=== PATIENT | female | born 1945 | race Caucasian/White ===

== ENCOUNTER 2020-07-30 13:21 | Outpatient (CLI) | payer OTHER, SELFPAY ==
--- NOTE | 2020-07-30 13:38 | XR_ITS ---
WS: [id number] Left knee, 3 views, 07/30/2020 Clinical Data: LEFT KNEE PAIN AND SWELLING Comparison: None. Findings: No fractures or dislocations are seen. There is medial joint compartment narrowing. There is a small spur of the medial tibial plateau.. The patella demonstrates a posterior superior spur.. The soft tis sues are unremarkable. XR/XR knee LT 3V* [id number] Impression: Medial joint compartment narrowing and posterior patellar spur of the left knee .
== END 2020-07-30 13:22 | disposition home or self-care (01) ==
PROVIDERS: Visit Provider Internal Medicine
DX: M79.89 Other specified soft tissue disorders (principal); M25.561 Pain in right knee
CPT/HCPCS: 73562

== ENCOUNTER 2021-04-15 09:10 | Outpatient (CLI) | payer MEDICARE, OTHER, SELFPAY ==
[2021-04-15 09:32] VITALS: BP 146/83; PULSE 67; RESP 16; TEMP 36.6; O2SAT 99; BMI 22.8
[2021-04-15 10:19] VITALS: BP 146/81; PULSE 66; RESP 16; TEMP 36.5; O2SAT 99
[2021-04-15 11:19] VITALS: BP 148/89; PULSE 62; RESP 17; TEMP 36.6; O2SAT 99
== END 2021-04-15 09:11 | disposition home or self-care (01) ==
PROVIDERS: Visit Provider Nurse Practitioner Family
DX: U07.1 COVID-19 (principal)
CPT/HCPCS: 96365

== ENCOUNTER 2021-05-10 06:00 | Outpatient (RCR) | payer MEDICARE, OTHER, SELFPAY | END 2021-05-16 23:59 | disposition home or self-care (01) | LOC: SPT 06:00 | PROVIDERS: Referring Provider Student in an Organized Health Care Education/Training Program; Visit Provider Student in an Organized Health Care Education/Training Program | DX: Z47.1 Aftercare following joint replacement surgery (principal); Z96.652 Presence of left artificial knee joint | CPT/HCPCS: 97110; 97161 ==

== ENCOUNTER 2021-05-17 06:00 | Outpatient (RCR) | payer MEDICARE, OTHER, SELFPAY | END 2021-06-13 23:59 | disposition home or self-care (01) | LOC: SPT 06:00 | PROVIDERS: Referring Provider Student in an Organized Health Care Education/Training Program; Visit Provider Student in an Organized Health Care Education/Training Program | DX: Z47.1 Aftercare following joint replacement surgery (principal); Z96.652 Presence of left artificial knee joint | CPT/HCPCS: 97110 ==

== ENCOUNTER 2021-09-09 12:05 | Outpatient (CLI) | payer MEDICARE, OTHER, SELFPAY ==
[2021-09-09 12:24] LABS: Basophils % 0.4 %; Eosinophils % 0.6 %; Hematocrit 38.4 % (37.0-47.0); Hemoglobin 12.1 g/dL (11.5-15.3); Lymphocytes # 1.3 10^3/uL (0.8-4.8); Lymphocytes % 26.1 %; Mean Corpuscular HGB Conc 31.5 g/dL (30.0-36.0); Mean Corpuscular Hemoglobin 29.2 pg (28.0-34.0); Mean Corpuscular Volume 92.8 fl (81-99); Mean Platelet Volume 8.4 fL (7.4-10.4); Monocytes # 0.5 10^3/uL (0.2-0.9); Monocytes % 8.9 %; Neutrophils # 3.23 10^3/uL (1.8-7.7); Nucleated Red Blood Cells % 0 %; Platelet Count 204 10^3/cmm (130-400); Red Blood Count 4.14 10^6/uL (4.1-5.3); Red Cell Distribution Width 13.8 % (12.1-15.1); White Blood Count 5.1 10^3/uL (4.0-10.0)
[2021-09-09 12:44] LABS: Alanine Aminotransferase 14 U/L (0-33); Albumin Level 4.6 g/dL (3.5-5.2); Alkaline Phosphatase 135 IU/L (35-105); Anion Gap 14.7 (5-19); Aspartate Amino Transferase 27 U/L (0-32); Blood Urea Nitrogen 26 mg/dL (8-23); Calcium 9.4 mg/dL (8.5-10.5); Carbon Dioxide 25 mmol/L (22-29); Chloride 102 mmol/L (98-107); Glucose 87 mg/dL (65-115); Osmolality Calculated 290 mOsm/kg (285-295); Potassium 3.7 mmol/L (3.5-5.1); Sodium 138 mmol/L (136-145); Total Bilirubin 0.3 mg/dL (0.15-1.2); Total Protein 7.6 g/dL (6.6-8.7)
== END 2021-09-09 12:06 | disposition home or self-care (01) ==
PROVIDERS: Visit Provider Nurse Practitioner Family
DX: C80.1 Malignant (primary) neoplasm, unspecified (principal)
CPT/HCPCS: 80053; 85025

== ENCOUNTER 2021-10-10 08:41 | Outpatient (CLI) | payer MEDICARE, OTHER, SELFPAY ==
[2021-10-12 02:28] LABS: Quest SARS-CoV-2 RNA NOT DETECTED (NOT DETECTED)
== END 2021-10-10 08:42 | disposition home or self-care (01) ==
LOC: LAB 08:45
PROVIDERS: Visit Provider Internal Medicine
DX: Z01.812 Encounter for preprocedural laboratory examination (principal); Z20.822 Contact with and (suspected) exposure to COVID-19
CPT/HCPCS: 87635

== ENCOUNTER 2022-05-24 06:00 | Outpatient (RCR) | payer MEDICARE, OTHER, SELFPAY | END 2022-06-13 23:59 | disposition home or self-care (01) | LOC: SPT 06:00 | PROVIDERS: Visit Provider Internal Medicine | DX: I89.0 Lymphedema, not elsewhere classified (principal) | CPT/HCPCS: 97110; 97140; 97161 ==

== ENCOUNTER 2022-06-14 06:00 | Outpatient (RCR) | payer MEDICARE, OTHER, SELFPAY | END 2022-07-14 23:59 | disposition home or self-care (01) | LOC: SPT 06:00 | PROVIDERS: Visit Provider Internal Medicine | DX: I89.9 Noninfective disorder of lymphatic vessels and lymph nodes, unspecified (principal) | CPT/HCPCS: 97140 ==

== ENCOUNTER 2022-08-01 08:40 | Outpatient (CLI) | payer MEDICARE, OTHER, SELFPAY ==
[2022-08-01 10:04] LABS: Basophils % 2.8 %; Eosinophils % 1.4 %; Hematocrit 38.2 % (37.0-47.0); Hemoglobin 12.6 g/dL (11.5-15.3); Lymphocytes # 0.3 10^3/uL (0.8-4.8); Lymphocytes % 19.7 %; Mean Corpuscular Hemoglobin 29.8 pg (28.0-34.0); Mean Corpuscular Volume 90.3 fl (81-99); Monocytes % 2.8 %; Neutrophils % 70.5 %; Nucleated Red Blood Cells % 0 %; Platelet Count 208 10^3/cmm (130-400); Red Blood Count 4.23 10^6/uL (4.1-5.3); Red Cell Distribution Width 13.5 % (12.1-15.1); White Blood Count 1.4 10^3/uL (4.0-10.0)
[2022-08-01 10:30] LABS: Alanine Aminotransferase 23 U/L (0-33); Albumin Level 4.1 g/dL (3.5-5.2); Alkaline Phosphatase 119 U/L (35-105); Anion Gap 13.9 (5-19); Aspartate Amino Transferase 25 U/L (0-32); Blood Urea Nitrogen 25 mg/dL (8-23); Calcium 8.8 mg/dL (8.5-10.5); Carbon Dioxide 25 mmol/L (22-29); Chloride 100 mmol/L (98-107); Glucose 95 mg/dL (65-115); Osmolality Calculated 284 mOsm/kg (285-295); Potassium 3.9 mmol/L (3.5-5.1); Sodium 135 mmol/L (136-145); Total Bilirubin 0.7 mg/dL (0.15-1.2); Total Protein 7.1 g/dL (6.6-8.7)
[2022-08-01 10:52] LABS: Slide Review Slide Review Perform
== END 2022-08-01 08:41 | disposition home or self-care (01) ==
LOC: LAB 08:45 → ONCMTN 09:54 → ONCMED 09:58
PROVIDERS: PCP Speech-Language Pathologist; Visit Provider Internal Medicine Medical Oncology
DX: C76.0 Malignant neoplasm of head, face and neck (principal); D64.9 Anemia, unspecified
CPT/HCPCS: 36415; 80053; 85025; 96365; 99214; J1100; J7040

== ENCOUNTER 2022-08-01 14:12 | Outpatient (RCR) | payer MEDICARE, OTHER, SELFPAY ==
[2022-08-01] MEDS: sodium chloride 0.9% 500 ML 75 ML IV (11:08)
[2022-08-01 11:11] VITALS: BP 114/74; PULSE 74; RESP 16; TEMP 37.2; O2SAT 98
[2022-08-01 12:18] VITALS: BP 122/74; PULSE 84; RESP 16; TEMP 36.6; O2SAT 98
== END 2022-08-13 23:59 | disposition home or self-care (01) ==
LOC: ONCMED 14:12
PROVIDERS: PCP Speech-Language Pathologist; Visit Provider Internal Medicine
DX: C06.2 Malignant neoplasm of retromolar area (principal); Z90.89 Acquired absence of other organs; R53.1 Weakness; R53.0 Neoplastic (malignant) related fatigue; R63.0 Anorexia; Z68.1 Body mass index [BMI] 19.9 or less, adult; K12.31 Oral mucositis (ulcerative) due to antineoplastic therapy; D70.1 Agranulocytosis secondary to cancer chemotherapy; T45.1X5A Adverse effect of antineoplastic and immunosuppressive drugs, initial encounter; Z79.2 Long term (current) use of antibiotics; Z79.52 Long term (current) use of systemic steroids; Z79.899 Other long term (current) drug therapy
CPT/HCPCS: 96365; 99214; J1100; J7040

== ENCOUNTER 2022-09-18 09:31 | Oncology outpatient (recurring) (ONCR) | payer MEDICARE, OTHER, SELFPAY ==
[2022-09-18 10:20] VITALS: BP 103/59; PULSE 102; RESP 16; TEMP 36.7; O2SAT 99
[2022-09-18] MEDS: sodium chloride 0.9% 1,000 ML 999 ML IV (10:31)
[2022-09-18 12:10] VITALS: BP 99/58; PULSE 94; RESP 16; TEMP 38; O2SAT 99
== END 2022-10-13 23:59 | disposition home or self-care (01) ==
PROVIDERS: PCP Speech-Language Pathologist; Visit Provider Internal Medicine Medical Oncology
DX: C06.2 Malignant neoplasm of retromolar area (principal)
CPT/HCPCS: 96365; J1100; J7030

== ENCOUNTER 2023-04-27 07:53 | Oncology outpatient (recurring) (ONCR) | payer MEDICARE, OTHER, SELFPAY ==
[2023-04-27 08:23] LABS: Hematocrit 32.5 % (36-47); Lymphocytes # 0.5 10^3/uL (0.8-4.8); Mean Corpuscular HGB Conc 34.8 g/dL (30-55); Mean Corpuscular Hemoglobin 31.7 pg (27-33); Mean Corpuscular Volume 91.3 fl (85-98); Mean Platelet Volume 8.3 fL (7.4-10.4); Monocytes # 0.2 10^3/uL (0.2-0.9); Monocytes % 6.5 %; Neutrophils # 2.61 10^3/uL (1.8-7.7); Neutrophils % 77.2 %; Nucleated Red Blood Cells % 0 %; Platelet Count 181 10^3/cmm (157-399); Red Blood Count 3.56 10^6/uL (3.85-5.65); Red Cell Distribution Width 12.8 % (12.1-15.1); White Blood Count 3.38 10^3/uL (3.29-11.43)
[2023-04-27] MEDS: ondansetron 2 mg/ML SDV 2 mL 8 MG IVP (08:43)
[2023-04-27] MEDS: sodium chloride 0.9% 1,000 ML 999 ML IV (08:43)
[2023-04-27 08:47] LABS: Alanine Aminotransferase 15 U/L (0-33); Alkaline Phosphatase 158 U/L (35-105); Anion Gap 17.5 (5-19); Aspartate Amino Transferase 27 U/L (0-32); Blood Urea Nitrogen 15 mg/dL (8-23); Calcium 9.5 mg/dL (8.5-10.5); Carbon Dioxide 22 mmol/L (22-29); Chloride 95 mmol/L (98-107); Globulin 2.7 g/dL (1.3-4.6); Glucose 209 mg/dL (65-115); Osmolality Calculated 277 mOsm/kg (285-295); Potassium 4.5 mmol/L (3.5-5.1); Sodium 130 mmol/L (136-145); Total Bilirubin 0.6 mg/dL (0.15-1.2); Total Protein 6.7 g/dL (6.6-8.7)
[2023-04-27 10:21] VITALS: BP 92/57; PULSE 78; RESP 16; O2SAT 99
== END 2023-05-16 23:59 | disposition home or self-care (01) ==
LOC: ONCMED 07:56
PROVIDERS: Nurse Practitioner Family; PCP Speech-Language Pathologist; Visit Provider Internal Medicine Medical Oncology
DX: C06.2 Malignant neoplasm of retromolar area (principal)
CPT/HCPCS: 80053; 85025; 96365; 96375; J1100; J2405; J7030

== ENCOUNTER 2024-07-28 09:07 | Outpatient (CLI) | payer MEDICARE, OTHER, SELFPAY ==
--- NOTE | 2024-07-28 09:17 | CT_ITS ---
WS: [id number] CT CHEST TECHNIQUE: Contrast enhanced CT of the chest with coronal and sagittal reformatted images. CLINICAL INFORMATION: DYSPNEA HYPOXIA COMPARISON: PET/CT 09/10/2021. DLP: 191.[address] scans at [facility] use at least one of these dose optimization techniques: automated exposure control; mA and/or kV adjustment per patient size (includes targeted exams where dose is matched to clinical indication); or iterative reconstruction. FINDINGS: Lungs are well aerated. No acute pulmonary infiltrates. No focal pneumonia or pleural fluid. Calcified granuloma RIGHT upper lobe. Calcified RIGHT hilar and mediastinal lymph nodes. Slightly ectatic ascending thoracic aorta measuring 3.1 cm. Normal caliber descending thoracic aorta. Proximal main pulmonary arteries appear normal. No axillary lymphadenopathy. Small esophageal hiatal hernia. Moderate thoracic kyphosis. Chronic anterior wedging in the midthoracic spine. Anterior hypertrophic changes thoracic spine. CT/CT chest w con* [id number] IMPRESSION: 1. Lungs are well aerated. No acute pulmonary infiltrates. 2. No mediastinal or hilar lymphadenopathy. Calcified RIGHT hilar and mediasti nal lymph nodes. 3. Tiny esophageal hernia. 4. No other acute findings.
[2024-07-28 10:02] LABS: Blood Urea Nitrogen 9 mg/dL (8-23)
[2024-07-28] MEDS: iohexol 350 mg/mL 500 mL Btl (per mL) IV (10:14)
== END 2024-07-28 09:08 | disposition home or self-care (01) ==
LOC: RAD 09:14
PROVIDERS: PCP Internal Medicine; Visit Provider Nurse Practitioner Family
DX: R06.00 Dyspnea, unspecified (principal); R09.02 Hypoxemia; I89.8 Other specified noninfective disorders of lymphatic vessels and lymph nodes; K44.9 Diaphragmatic hernia without obstruction or gangrene; M40.294 Other kyphosis, thoracic region; M48.54XD Collapsed vertebra, not elsewhere classified, thoracic region, subsequent encounter for fracture with routine healing; M89.38 Hypertrophy of bone, other site
CPT/HCPCS: 71260; 82565; 84520

== ENCOUNTER 2024-08-19 12:49 | Outpatient (CLI) | payer MEDICARE, OTHER, SELFPAY ==
--- NOTE | 2024-08-19 12:57 | XRR_ITS ---
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 Views: 2 views. COMPARISON: CT chest w con* [id number] 07/28/2024 10:08 AM FINDINGS: Lungs: Hyperexpanded lungs are noted corresponding to COPD. No consolidation. There is a solitary granuloma with calcification right lung apex. Pleural spaces: Unremarkable. No pleural effusion. No pneumothorax. Heart/Mediastinum: There is calcified granulomas in the right paratracheal region stable since prior. No cardiomegaly. Bones/joints: Osteopenia and osteoarthritis. XR/XR chest 2V* [id number] IMPRESSION: 1. No acute findings. 2. COPD 3. Dorsal spine osteopenia and osteoarthritis. 4. Calcified granulomas right paratracheal area. 5. Right apical calcified granuloma
== END 2024-08-19 12:50 | disposition home or self-care (01) ==
PROVIDERS: PCP Internal Medicine; Visit Provider Internal Medicine
DX: R09.02 Hypoxemia (principal); R06.00 Dyspnea, unspecified; J44.9 Chronic obstructive pulmonary disease, unspecified; M85.88 Other specified disorders of bone density and structure, other site; M47.9 Spondylosis, unspecified; J84.10 Pulmonary fibrosis, unspecified
CPT/HCPCS: 71046

== ENCOUNTER 2024-08-29 05:45 | Outpatient (CLI) | payer MEDICARE, OTHER, SELFPAY ==
--- NOTE | 2024-08-29 06:15 | USCV_ITS ---
Shahnaz Nugent Age: 79 Gender: F : 1945 Exam Date: 08/29/2024 06:17 Ordering Phys: Sole Azar MD Technologist: Ketan De Souza Exam Location: [facility] [place] Indication: hypoxia BP: 119 / 73 HR: 82 Rhythm: Sinus Technical Quality: Adequate MEASUREMENTS (Male / Female) Normal Values 2D ECHO LV Diastolic Diameter PLAX 3.1 cm 4.2 - 5.9 / 3.9 - 5.3 cm IVS Diastolic Thickness 0.8 cm 0.6 - 1.0 / 0.6 - 0.9 cm IVS Systolic Thickness 0.8 cm LVPW Diastolic Thickness 1.1 cm 0.6 - 1.0 / 0.6 - 0.9 cm LVPW Systolic Thickness 1.3 cm LVOT Diameter 2.0 cm LV Ejection Fraction 2D Teich 76.4 % LV Ejection Fraction MOD 4C 62.3 % LV Ejection Fraction MOD 2C 71.1 % LV Ejection Fraction 2C AL 71.1 % LA Diameter 3.1 cm RA Systolic Volume 4C AL 21.7 ml RA Systolic Volume 4C MOD 19.3 ml LA Sys Volume AL 12.8 cm cubed LA Sys Volume Index AL 9.4 cm cubed/m squared Aorta at Sinotubular Diameter 2.3 cm IVC Diameter 1.3 cm M-MODE LA Ao Ratio MM 1.1 AV Cusp Separation MM 1.3 cm DOPPLER AV Peak Velocity 109.0 cm/s LVOT Peak Velocity 114.0 cm/s AV Area Cont Eq vti 3.4 cm squared AV Area Cont Eq pk 3.3 cm squared MV Peak Velocity 103.0 cm/s MV Area PHT 2.8 cm squared Mitral E to A Ratio 0.6 TR Peak Velocity 342.0 cm/s TR Peak Gradient 46.8 mmHg TR Mean Velocity 255.0 cm/s TR Mean Gradient 28.8 mmHg TR Velocity Time Integral 72.3 cm PV Peak Velocity 77.0 cm/s RV Ejection Time 0.2 s FINDINGS Left Ventricle Normal left ventricular size, systolic function and wall thickness, with no regional wall motion abnormalities. Left ventricular ejection fraction is estimated at 62%. Grade 1 diastolic dysfunction. Right Ventricle Normal right ventricular size and systolic function. Right Atrium Normal right atrial size. Left Atrium Normal left atrial size. Mitral Valve Mildly thickened mitral valve. Mild mitral annular calcification. Aortic Valve Mildly thickened aortic valve. Tricuspid Valve Structurally normal tricuspid valve. Trace tricuspid valve regurgitation. Normal TR gradient 28 mmHg. Pulmonic Valve Structurally normal pulmonic valve. Trace pulmonary valve regurgitation. Pericardium No pericardial effusion. Aorta Normal size aortic root and proximal ascending aorta. IVC Normal inferior vena cava. CONCLUSIONS Normal left ventricular function. Normal LVEF 62%. Normal chamber sizes. No significant valvular abnormalities noted. Normal right heart and pulmonary pressures. Alisha Mooney MD (Electronically Signed) Final Date: 29 Aug 2024 09:24 S
== END 2024-08-29 05:46 | disposition home or self-care (01) ==
PROVIDERS: PCP Internal Medicine; Visit Provider Internal Medicine
DX: R09.02 Hypoxemia (principal); R93.1 Abnormal findings on diagnostic imaging of heart and coronary circulation; I34.81 Nonrheumatic mitral (valve) annulus calcification; I35.8 Other nonrheumatic aortic valve disorders
CPT/HCPCS: 93306

== ENCOUNTER 2024-09-17 12:20 | Outpatient (CLI) | payer MEDICARE, OTHER, SELFPAY ==
--- NOTE | 2024-09-17 12:37 | CT_ITS ---
WS: [id number] CTA OF THE CHEST WITH PULMONARY EMBOLISM PROTOCOL TECHNIQUE: High-resolution contrast enhanced CTA of the chest with coronal and sagittal reformatted images with pulmonary embolism protocol. MIP images are also reviewed. CLINICAL INFORMATION: DYSPNEA COMPARISON: 07/28/2024 DLP: 137.[address] scans at [facility] use at least one of these dose optimization techniques: automated exposure control; mA and/or kV adjustment per patient size (includes targeted exams where dose is matched to clinical indication); or iterative reconstruction. FINDINGS: Proximal main pulmonary arteries are normal. No evidence of pulmonary embolus. Stable slightly ectatic ascending thoracic aorta measuring 3.1 cm. Chronic emphysematous changes. Lungs are well aerated. No acute pulmonary infiltrates. Calcified granuloma RIGHT upper lobe. Moderate thoracic kyphosis. Chronic anterior wedging in the midthoracic spine. No mediastinal or hilar lymphadenopathy. Tiny esophageal hiatal hernia. CT/CT angio chest PE protcl [id number] IMPRESSION: 1. No evidence of pulmonary embolus. 2. No acute pulmonary infiltrates. Lungs are well aerated. 3. Stable slight ectatic ascending thoracic aorta measuring 3.1 cm. 4. Small esophageal hernia. 5. No other acute findings.
[2024-09-17 13:59] LABS: Blood Urea Nitrogen 13 mg/dL (8-23)
[2024-09-17] MEDS: iohexol 350 mg/mL 500 mL Btl (per mL) IV (14:18)
== END 2024-09-17 12:21 | disposition home or self-care (01) ==
PROVIDERS: PCP Internal Medicine; Visit Provider Nurse Practitioner Family
DX: R06.00 Dyspnea, unspecified (principal); K44.9 Diaphragmatic hernia without obstruction or gangrene; J43.8 Other emphysema; J84.10 Pulmonary fibrosis, unspecified; M40.294 Other kyphosis, thoracic region; M48.54XD Collapsed vertebra, not elsewhere classified, thoracic region, subsequent encounter for fracture with routine healing
CPT/HCPCS: 71275; 82565; 84520

== ENCOUNTER 2024-10-23 11:11 | Inpatient (IN) | payer MEDICARE, OTHER, SELFPAY ==
[2024-10-23] VITALS (20 sets, daily range): BP systolic 109–141; BP diastolic 83–100; PULSE 68–106; RESP 16–42; TEMP 36.9; O2SAT 92–98; BMI 13.3; BMI 13.1
--- NOTE | 2024-10-23 11:20 | XR_ITS ---
WS: [id number] Exam: XR chest 1V portable [id number] Date/Time of Exam: 10/23/2024 11:20 AM Reason For Exam: dyspnea/cough Comparison 08/19/2024. The lungs are hyperinflated. No consolidating infiltrates are seen. 2 cm soft tissue nodule in the RIGHT lower lung zone. Possible second 2 cm nodular density in the RIGHT upper lobe. No pleural effusion. Normal cardiomediastinal silhouette. Bony structures are intact. XR/XR chest 1V portable [id number] IMPRESSION: 1. Pulmonary hyperinflation. 2. No acute infiltrates. 3. Soft tissue nodules identified in the upper and lower aspects of the RIGHT l chiquita. Neoplasm or metastatic disease not excluded.
--- OUTSIDE RECORDS SUMMARY | 2024-10-23 11:26 | XMS_ITS | Clinical Summary ---
Author Organization [facility] Address [address] [place] [address] Care Team Providers Care Steel Plate Printer Name Role Phone Sole Azar MD Primary Care Provider [phone] Allergies No known active allergies Medications traMADoL (ULTRAM) 50 mg tabletIndication s:Status post total left knee replacement Take 1 Tablet (50 mg) by mouth every 6 hours as needed for Pain. 28 Tablet 05/05/2021 2:29 PM SALAD MAKER 2 Active polyethylene glycol 3350 (Miralax) 17 gram/dose Powder Take 1 Scoop (17 Grams) by mouth daily. Dissolve in 8 ounces of fluid and drink entire liquid 510 Gram 2 Active ondansetron (ZOFRAN) 4 mg Tablet Take 1 Tablet (4 mg) by mouth every 8 hours as needed for Nausea/Emesis . 20 Tablet 2 Active Active Problems Problem Noted Date Diagnosed Date Status post total left knee replacement 05/04/19 22 Resolved Problems Problem Noted Date Diagnosed Date Resolved Date Arthritis of left knee 02/16/202105/05 Preoperative general physical examination 05/04/2021 Immunizations Immunization Administration Dates Next Due (SPIKEVAX) (12 YRS UP PRIMAR Y SERIES) COVID-19 VACCINE - MRNA-1273(PF) 100 MCG/0.5 ML IM SUSP 11/28/2020,10/31/2020 Family History * Patient is adopted Medical History Relation Name Comments Healthy Daughter Diabetes Father Other Mother natural causes Healthy Son 1 Healthy Son 2 Relation Name Status Comments Daughter Alive Father Mother Son 1 Alive Son 2 Alive Social History Tobacco Use Types Packs/Day Years Used Date Smoking Tobacco: Never Smokeless Tobacco: Never Alcohol Use Standard Drinks/Week Comments Never 0 (1 standard drink = 0.6 oz pur e alcohol) Comments No Sex and Gender Information Value Date Recorded Sex Assigned at Not on file Legal Sex Female 10:51 AM CDT Gender Identity Not on file Sexual Orientation Not on file Last Filed Vital Signs Vital Sign Reading Time Taken Comments Blood Pressure 136/83 06/02/2021 8:29 AM SALAD MAKER Pulse 72 06/02/2021 8:29 AM SALAD MAKER Temperature 36.8 C (98.2 F) 05/05/2021 11:50 AM SALAD MAKER Respiratory Rate 16 05/05/2021 11:50 AM SALAD MAKER Oxygen Saturation 99% 05/05/2021 11:50 AM SALAD MAKER Inhaled Oxygen Concentration - - Weight 59.4 kg (131 lb) 06/02/2021 8:29 AM SALAD MAKER Height 157.5 cm (5' 2 ) 06/02/2021 8:29 AM SALAD MAKER Body Mass Index 23.96 06/02/2021 8:29 AM SALAD MAKER Plan of Treatment Health Maintenance Due Date Last Done Comments DTAP/TDAP/TD VACCINES (1 - Tdap) 1966 PNEUMOCOCCAL VACCINE 50+ YEA RS (1 of 1 - PCV) 1997 ZOSTER VACCINE (1 of 2) 1997 OSTEOPOROSIS SCREENING 02/12/2012 RSV VACCINE (60+ or ) (1 - 1-dose 75+ series) 2022 COVID-19 Vaccine ( - season) 2023, 10/31/2020 INFLUENZA VACCINE (#1) 2024 Medical Devices Implanted Type Area Supervisor Pre Wave Device Identifier Shelf Expiration Date Model / Serial / Lot Cement [employer] Mv Zirconium Dioxide [employer] Lf Disp [id number] - [id number] Implanted:Qty: 1 on 05/04/2021 by Elio Taylor MD at [facility] Cement Left: Knee [employer] [id number] 05/16/2023 [id number] / / [id number] Cement [employer]ac[employer] Mv Zirconium Dioxide St Lf Disp [id number] - [id number] Implanted:Qty: 1 on 05/04/2021 by Elio Taylor MD at [facility] Cement Left: Knee [employer] [id number] 05/16/2023 [id number] / / [id number] Insert Attune Fb Cr Sz4 7mm 1516-20-407 - [id number] Implanted:Qty: 1 on 05/04/2021 by Elio Taylor MD at [facility] Knee Left: Knee [employer] [id number] 01/13/2026 [id number] / / [id number] Comp Fem Attune Cr Sz 4 Lt Cmntd 1504-00-104 - [id number] Implanted:Qty: 1 on 05/04/2021 by Elio Taylor MD at [facility] Knee Left: Knee [employer] [id number] 11/13/2030 [id number] / / [id number] Comp Tib Attune Fb Cmnt Sz4 1506-70-004 - [id number] Implanted:Qty: 1 on 05/04/2021 by Elio Taylor MD at [facility] Knee Left: Knee [employer] [id number] 03/15/2031 [id number] / / [id number] Insurance MEDICARE PART A AND B [place] [id number] RX [facility] Medicare Part D RX [employer]ANS (INTERNAL) [facility] Care Teams Steel Plate Printer Relationship Specialty Start Date End Date Sole Azar MD [address] [place], [place] [address] PCP - General Internal Medicine 04/19/21
--- OUTSIDE RECORDS SUMMARY | 2024-10-23 11:26 | XMS_ITS | Clinical Summary ---
Author Organization [facility] Address [address] [place] [address] Care Team Providers Care Embedded Systems Software Developer Name Role Phone Unavailable Primary Care Provider Unavailabl e Social History Tobacco Use Types Packs/Day Years Used Date Smoking Tobacco: Never Assessed Comments Unknown Sex and Gender Information Value Date Recorded Sex Assigned at Not on file Legal Sex Female 10:50 AM CDT Gender Identity Not on file Sexual Orientation Not on file Plan of Treatment Health Maintenance Due Date Last Done Comments DTAP/TDAP/TD VACCINES (1 - Tdap) 1966 PNEUMOCOCCAL VACCINE 50+ YEARS (1 of 1 - PCV) 02/11/19 97 ZOSTER VACCINE (1 of 2) 1997 OSTEOPOROSIS SCREENING 02/12/2012 RSV VACCINE (60+ or ) (1 - 1-dose 75+ series) 2022 INFLUENZA VACCINE (#1) 2024
--- NOTE | 2024-10-23 11:29 | CT_ITS ---
WS: [id number] Exam: CT angio chest w abd pel w con Date/Time of Exam: 10/23/2024 1:00 PM Reason For Exam: hemoptysis/abd pain/loss of appetite, hx Ca DLP: 376.[address] scans at [facility] use at least one of these dose optimization techniques: automated exposure control; mA and/or kV adjustment per patient size (includes targeted exams where dose is matched to clinical indication); or iterative reconstruction. CTA of the chest. There are pulmonary emboli identified in the peripheral arterial branches to the RIGHT upper, middle and lower lobes. Also there are pulmonary emboli identified in the peripheral branches involving the lingular segment of the LEFT upper lobe. No central pulmonary emboli are seen. 3 cm spiculated masslike density seen in the anterior RIGHT upper lobe, 2.5 cm masslike density seen in the RIGHT lower lobe as well as a 2 cm lesion in the more posterior RIGHT lower lobe. 1 cm nodule seen in the medial segment of the RIGHT middle lobe. These have occurred since the previous exam performed 09/17/2024. The LEFT lung is clear. The thoracic aorta is normal in caliber. No pericardial effusion. No pleural effusion. Hiatal hernia. Pulmonary hyperinflation. No mediastinal lymphadenopathy or hilar lymphadenopathy. No destructive bone lesions are seen. Exaggerated thoracic kyphosis. CT/CT angio chest w abd pel w con IMPRESSION: 1. Pulmonary emboli in within the peripheral branches of the RIGHT middle, lowe r and upper lobes and the lingular segment of the LEFT upper lobe. This is a ne w finding. 2. Focal spiculated masslike areas of consolidation in the RIGHT lung as noted above. These are new since the prior study. These may represent areas of focal pneumonia, malignant or metastatic disease or septic emboli might also have thi s appearance. CT scan of the abdomen and pelvis with contrast. Small hiatal hernia. The liver, spleen and pancreas are unremarkable. The abdom inal aorta is normal in caliber. The IVC is patent. Unremarkable kidneys. Katia l adrenal glands. Normal gallbladder. Small bowel loops are normal in caliber. Constipation. No sign of acute appendix. Prominent rectal fecal impaction. Inta ct urinary bladder. No mass or adenopathy in the pelvis. No destructive bone le sions. No abdominal wall defects. Atrophic uterus. Osteitis of the pubic symphy sis. IMPRESSION: 1. No mass, lymphadenopathy or acute finding in the abdomen or pelvis. 2. Constipation.
[2024-10-23 12:15] LABS: Hematocrit 44.0 % (36-47); Hemoglobin 14.60 g/dL (11.27-16.99); Mean Corpuscular HGB Conc 33.2 g/dL (30-55); Mean Corpuscular Hemoglobin 29.8 pg (27-33); Mean Corpuscular Volume 89.8 fl (85-98); Nucleated Red Blood Cells % 0 %; Platelet Count 360 10^3/cmm (157-399); Red Blood Count 4.90 10^6/uL (3.85-5.65); White Blood Count 13.96 10^3/uL (3.29-11.43)
--- NOTE | 2024-10-23 12:17 | ECG_ITS ---
[email or web address]: 2024-10[facility]23 Pat Name: Shahnaz Nugent Department: Room: Gender: Female Roll Hauler: : 1945 Requested By: Benjamín Michel Order Number: [id number] Karina MD: Angel Ramirez M.D. Measurements Intervals [place] Rate: 98 P: 77 MA: 142 QRS: 68 QRSD: 76 T: 83 QT: 340 QTc: 434 Interpretive Statements SINUS RHYTHM SEPTAL MYOCARDIAL INFARCTION , OF INDETERMINATE AGE [40+ ms Q WAVE IN V1/V2] No previous ECG available for comparison Electronically Signed On 10-24-2024 15:21:58 CDT by Angel Ramirez M.D. [email or web address]
[2024-10-23 12:35] LABS: Alanine Aminotransferase 23 U/L (0-33); Albumin Level 3.3 g/dL (3.5-5.2); Alkaline Phosphatase 98 U/L (35-105); Anion Gap 16.3 (5-19); Aspartate Amino Transferase 16 U/L (0-32); Blood Urea Nitrogen 36 mg/dL (8-23); Calcium 9.2 mg/dL (8.5-10.5); Carbon Dioxide 26 mmol/L (22-29); Chloride 105 mmol/L (98-107); Creatinine Clr Calc Pharmacy 30.6797; Globulin 3.1 g/dL (1.3-4.6); Glucose 97 mg/dL (65-115); Osmolality Calculated 304 mOsm/kg (285-295); Potassium 4.3 mmol/L (3.5-5.1); Sodium 143 mmol/L (136-145); Total Protein 6.4 g/dL (6.6-8.7)
[2024-10-23 12:43] LABS: Glucose Urine UA Negative (Normal); Nitrate Urine Negative (Negative); Specific Gravity, Urine 1.028 (1.005-1.030)
[2024-10-23 12:45] LABS: Add Urine Microscopic? YES
[2024-10-23] MEDS: iohexol 350 mg/mL 500 mL Btl (per mL) IV (13:01)
--- NOTE | 2024-10-23 13:03 | ED_ITS ---
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 Patient was treated with rounds of chemo had a reconstruction of her jaw then has been on Keytruda. She is complaining of some mild shortness of breath now. She also having increasing hemoptysis. No vomiting no diarrhea Associated symptoms: Denies abdominal pain, chills, fever(s) or rash Related Data Home Medications ?Medication ?Instructions ?Recorded ?Confirmed esomeprazole magnesium 40 mg 40 mg PO DAILY 10/23/24 0 10/23/24 capsule,delayed release hydrocortisone 10 mg tablet 15 mg PO BID 10/23/2410/14 levothyroxine 50 mcg tablet 50 mcg PO DAILY 10/23/24 0 10/23/24 potassium chloride 10 mEq 20 meq PO BID 10/23/2410/23 capsule,extended release prednisone 20 mg tablet 10 mg PO DAILY 10/23/2410/14 Allergies Allergy/AdvReac Type Severity Reaction Status Date / Time No Known Allergies Allergy Verified 08/01/22 10:10 Review of Systems 2 Const: Denies: fever(s) or chills Card: Denies: chest pain Resp: Denies: dyspnea GI: Denies: abdominal pain : Denies: dysuria, urinary frequency or urinary urgency Musc: Denies: neck pain or back pain Skin/Breast: Denies: rash PFSH ED 2 PFSH: Medical History Squamous cell carcinoma of retromolar trigone Surgical History History of mandibular surgery (10/13/21) Left composite hemimandibulectomy with infratemporal fossa resection, left selective neck dissection, and left fibular free flap reconstruction Social History Smoking and tobacco/nicotine status: never used tobacco/nicotine Alcohol intake: never Physical Exam 2 Const: GENERAL APPEARANCE: cooperative ORIENTATION/CONSCIOUSNESS: Yes awake, Yes oriented to person, Yes oriented to place and Yes oriented to time HENMT: COMMON NORMALS: normocephalic, atraumatic and hearing grossly normal bilaterally HEAD & SCALP: normocephalic and atraumatic Resp: COMMON NORMALS: normal respiratory effort, No retractions, No use of accessory muscles and clear to auscultation bilaterally AUSCULTATION: clear to auscultation bilaterally Cardio: COMMON NORMALS: regular rate, regular rhythm and No murmurs present (Cardio) RATE: regular rate RHYTHM: regular rhythm GI: COMMON NORMALS: Soft to palpation and No hepatosplenomegaly present A USCULTATION: Yes normoactive bowel sounds PALPATION: Yes Soft to palpation, No Tenderness to palpation present (GI), No Guarding due to palpation present (GI) and Yes No hepatosplenomegaly present Extremity: COMMON NORMALS: normal to inspection, capillary refill normal, no clubbing, cyanosis or edema, no calf tenderness and no pedal edema Neuro: SENSORIUM/ORIENTATION: Yes oriented to person, Yes oriented to place and Yes oriented to time Skin: COMMON NORMALS: no rashes or lesions noted GENERAL SKIN EXAM: no rashes or lesions noted Course 2 Vital Signs: Vital signs: Vital Signs Temperature 98.4 F 10/23/24 11:20 Pulse Rate 100 10/23/24 14:53 Respiratory Rate 16 10/23/24 14:53 Blood Pressure 131/92 10/23/24 16:04 Pulse Oximetry 93 10/23/24 16:04 Oxygen Delivery Me thod Room Air 10/23/24 16:04 MDM - GI Bleed Medical Decision Making CTA shows new spiculated masses possibly metastatic tumors possibly septic embolism. Patient also does have PE. She is having some fairly significant hemoptysis will admit the patient will contact Dr. Nicole he will evaluate the scans and advised on anticoagulation. He was started on ceftriaxone and Zithromax. Medical Records I reviewed the patient's medical records. Lab Data I reviewed the patient's lab results. 10/23/24 12:02 10/23/24 12:02 Radiology Impressions Chest X-Ray 10/23/24 11:20 IMPRESSION: 1. Pulmonary hyperinflation. 2. No acute infiltrates. 3. Soft tissue nodules identified in the upper and lower aspects of the RIGHT lung. Neoplasm or metastatic disease not excluded. Chest/Abdomen/Pelvis CT 10/23/24 11:29 IMPRESSION: 1. Pulmonary emboli in within the peripheral branches of the RIGHT middle, lower and upper lobes and the lingular segment of the LEFT upper lobe. This is a new finding. 2. Focal spiculated masslike areas of consolidation in the RIGHT lung as noted above. These are new since the prior study. These may represent areas of focal pneumonia, malignant or metastatic disease or septic emboli might also have this appearance. CT scan of the abdomen and pelvis with contrast. Small hiatal hernia. The liver, spleen and pancreas are unremarkable. The abdominal aorta is normal in caliber. The IVC is patent. Unremarkable kidneys. Normal adrenal glands. Normal gallbladder. Small bowel loops are normal in caliber. Constipation. No sign of acute appendix. Prominent rectal fecal impaction. Intact urinary bladder. No mass or adenopathy in the pelvis. No destructive bone lesions. No abdominal wall defects. Atrophic uterus. Osteitis of the pubic symphysis. IMPRESSION: 1. No mass, lymphadenopathy or acute finding in the abdomen or pelvis. 2. Constipation. Laboratory Results WBC 13.96 10^3/uL (3.29-11.43) H 10/23/24 12:02 RBC 4.90 10^6/uL (3.85-5.65) 10/23/24 12:02 Hgb 14.60 g/dL (11.27-16.99) 10/23/24 12:02 Hct 44.0 % (36-47) 10/23/24 12:02 MCV 89.8 fl (85-98) 10/23/24 12:02 MCH 29.8 pg (27-33) 10/23/24 12:02 MCHC 33.2 g/dL (30-55) 10/23/24 12:02 RDW 16.5 % (12.1-15.1) H 10/23/24 12:02 Plt Count 360 10^3/cmm (157-399) 10/23/24 12:02 MPV 8.1 fL (7.4-10.4) 10/23/24 12:02 Neut % (Auto) 87.7 % 10/23/24 12:02 Lymph % (Auto) 3.7 % 10/23/24 12:02 [place] % (Auto) 7.4 % 10/23/24 12:02 Eos % (Auto) 0.0 % 10/23/24 12:02 Baso % (Auto) 0.3 % 10/23/24 12:02 Neut # (Auto) 12.24 10^3/uL (1.8-7.7) H 10/23/24 12:02 Lymph # (Auto) 0.5 10^3/uL (0.8-4.8) L 10/23/24 12:02 [place] # (Auto) 1.0 10^3/uL (0.2-0.9) H 10/23/24 12:02 Eos # (Auto) 0.0 10^3/uL (0.0-0.8) 10/23/24 12:02 Baso # (Auto) 0.0 10^3/uL (0.0-0.1) 10/23/24 12:02 Nucleated RBC % (auto) 0 % 10/23/24 12:02 Nucleated RBCs # 0.0 /100WBC 10/23/24 12:02 Sodium 143 mmol/L (136-145) 10/23/24 12:02 Potassium 4.3 mmol/L (3.5-5.1) 10/23/24 12:02 Chloride 105 mmol/L (98-107) 10/23/24 12:02 Carbon Dioxide 26 mmol/L (22-29) 10/23/24 12:02 Anion Gap 16.3 (5-19) 10/23/24 12:02 BUN 36 mg/dL (8-23) H 10/23/24 12:02 Creatinine 0.4 mg/dL (0.5-0.9) L 10/23/24 12:02 GFR Calculation Not Reportable 10/23/24 12:02 Glucose 97 mg/dL (65-115) 10/23/24 12:02 Calculated Osmolality 304 mOsm/kg (285-295) H 10/23/24 12:02 Lactic Acid 1.0 mmol/L (0.5-2.2) 10/23/24 15:15 Calcium 9.2 mg/dL (8.5-10.5) 10/23/24 12:02 Total Bilirubin 0.5 mg/dL (0.15-1.2) 10/23/24 12:02 AST 16 U/L (0-32) 10/23/24 12:02 ALT 23 U/L (0-33) 10/23/24 12:02 Alkaline Phosphatase 98 U/L (35-105) 10/23/24 12:02 Total Protein 6.4 g/dL (6.6-8.7) L 10/23/24 12:02 Albumin 3.3 g/dL (3.5-5.2) L 10/23/24 12:02 Globulin 3.1 g/dL (1.3-4.6) 10/23/24 12:02 Urine Color Yellow (Yellow) 10/23/24 12:21 Urine Appearance Clear (CLEAR) 10/23/24 12:21 Urine pH 5.5 (5-7) 10/23/24 12:21 Ur Specific [place] 1.028 (1.005-1.030) 10/23/24 12:21 Urine Protein Trace (Negative) A 10/23/24 12:21 Urine Glucose (UA) Negative (Normal) 10/23/24 12:21 Urine Ketones Negative (Negative) 10/23/24 12:21 Urine Blood Negative (Negative) 10/23/24 12:21 Urine Nitrate Negative (Negative) 10/23/24 12:21 Urine Bilirubin Negative (Negative) 10/23/24 12:21 Urine Urobilinogen 1.0 mg/dL (Negative) 10/23/24 12:21 Ur Leukocyte Esterase Negative (Negative) 10/23/24 12:21 Urine RBC 3-5 /hpf (0-2) 10/23/24 12:21 Urine WBC 0-5 /hpf (0-5) 10/23/24 12:21 Ur Squamous Epith Cells 0-5 /hpf (0-5) 10/23/24 12:21 Amorphous Sediment Not Reportable 10/23/24 12:21 Urine Bacteria None seen /hpf (NONE) 10/23/24 12:21 Hyaline Casts 1.21 /lpf 10/23/24 12:21 Blood Type A Positive 10/23/24 12:02 Rho(D) Type Rh positive 10/23/24 12:02 Antibody Screen Negative 10/23/24 12:02 All radiology interpretation(s) finalized by discharge Discharge Plan Discharge Patient Disposition: Admitted As Inpatient Admit Provider: Andrew Ovalles Clinical Impression: Squamous cell carcinoma of retromolar trigone Pneumonia Qualifiers: Pneumonia type: due to unspecified organism Laterality: right Lung location: u pper lobe of lung Qualified Code(s): J18.9 - Pneumonia, unspecified organism Pulmonary embolism Qualifiers: Pulmonary embolism type: septic Chronicity: acute Acute cor pulmonale presence: without acute cor pulmonale Qualified Code(s): I26.90 - Septic pulmonary embolism without acute cor pulmonale Condition: Stable Coding Level of Care Code ED Engineering Production Worker for Domenic Myers
--- NOTE | 2024-10-23 14:53 | USCV_ITS ---
Shahnaz Nugent Age: 79 Gender: F : 1945 Exam Date: 10/23/2024 15:28 Ordering Phys: Benjamín Cabral DO Technologist: Exam Location: [facility] Indication: pe BP: / HR: Rhythm: Sinus Technical Quality: Adequate MEASUREMENTS (Male / Female) Normal Values 2D ECHO LVOT Diameter 2.0 cm LV Ejection Fraction MOD 4C 61.8 % LV Ejection Fraction MOD 2C 28.4 % LV Ejection Fraction 2C AL 30.7 % LA Diameter 2.7 cm LA Sys Volume AL 11.6 cm cubed LA Sys Volume Index AL 9.7 cm cubed/m squared Aorta at Sinotubular Diameter 2.5 cm IVC Diameter 1.2 cm M-MODE LA Ao Ratio MM 1.2 AV Cusp Separation MM 1.7 cm FINDINGS Left Ventricle Normal LV size with diffuse hypokinesia. LV ejection fraction of 31% Right Ventricle The right ventricle is normal in size and function. Right Atrium The right atrium is normal in size. Left Atrium Appears to be of normal size Mitral Valve Mild mitral annular calcification. Thickened mitral valve. Aortic Valve Thickened aortic valve. Tricuspid Valve No gross abnormalities noted Pulmonic Valve Pulmonic valve not well visualized. Pericardium Normal pericardium without effusion. Aorta Normal aortic annulus size. IVC Inferior vena cava not visualized. CONCLUSIONS Normal LV size with diffuse hypokinesia. LV ejection fraction of 31%. Mild mitral annular calcification. Thickened mitral valve. Thickened aortic valve. There is no pericardial effusion. There are no intracardiac masses. Compared to the study from 08/29/2024, there is a significant drop in the left ventricular ejection fraction from 62% to 31%. Dr Angel Ramirez MD [facility] (Electronically Signed) Final Date: 23 October 2024 17:27 S
[2024-10-23 15:45] LABS: Lactic Sepsis W/Reflex 1.0 mmol/L (0.5-2.2)
[2024-10-23] MEDS: piperacillin-tazobactam 3.375 GM in sodium chloride 0.9% (plus) 50 ML IV (16:16)
--- NOTE | 2024-10-23 16:55 | P.HP_ITS ---
Providers/Chief Complaint 2 Admitting Physician: Andrew Ovalles MD Primary Care Provider: Sole Azar MD Chief Complaint: coughing blood, upper abdominal pain History of Present Illness Shahnaz Nugent is a 79 year old female with history of hemoptysis starting last evening. It was bright red blood roughly 2 tablespoons at a time. She refused to come to the ER and 11 AM it was more dark red. She came in because she was uncomfortable and wanted some relief from the uncomfortable coughing. Hemoptysis has since slowed and she is no longer coughing at this time of interview. Patient's daughter is Vivian Kilpatrick MD and internal medicine Working locally at [facility] is very knowledgeable and involved in the patient's care and provides most of the history. Patient had squamous cell cancer of the mandible 2001 without risk factor of smoking or alcohol use of any significance in the preceding life. In September 2021 she had mandibulectomy at [facility] with the left fibular flap placed and did fairly well but could not open her mouth very far. Her weight at the time was 120 pounds. She then performed radiation therapy until December 2021. She was not on chemo at that time. 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 Docetaxel made her sick. Also Keytruda made her sick which is a biologic and her last dose was to finish in July 2024 but she developed shortness of breath on her next to the last dose and so was stopped. She developed adrenal hyponatremia and hypothyroidism and weight about 90 pounds at that time. Since then she is dropped to 72 pounds. See above for hemoptysis. She is also had loss of appetite with the Keytruda with the significant weight loss. She has had epigastric pain. Notably she walked a half marathon just 1.5 years ago. PET scan in April [address] scan just last month was negative for identifiable masses. Review of Systems 2 Narrative: General weight loss from 120 pounds down to 72 pounds over the course of 3 years with cancer treatment. She denies fevers chills night sweats. Last night she slept from 9 PM till 6:30 AM Cardiovascular no chest pain palpitations or edema Respiratory positive for cough productive of blood see HPI GI positive for epigastric pain but no nausea vomiting diarrhea she does have constipation 2 to 3 days but typically was 1-2 BMs a day no dysuria hematuria incontinence Neuro no seizures strokes limb weakness Endocrine she has had adrenal related hyponatremia and hypothyroidism. Cholesterol has been good Malignancy she is only had squamous cell cancer is her only malignancy but never smoked or drank she did have a dental implant that was old and possibly chronically inflamed as the cause Medications/Allergies Home Medications ?Medication ?Instructions ?Recorded ?Confirmed ?Last Taken ?Type esomeprazole magnesium 40 mg 40 mg PO DAILY 10/23/24 0 10/23/24 10/23/24 History capsule,delayed release hydrocortisone 10 mg tablet 15 mg PO BID 10/23/2410/1410/23/24 History levothyroxine 50 mcg tablet 50 mcg PO DAILY 10/23/24 0 10/23/24 10/23/24 History potassium chloride 10 mEq 20 meq PO BID 10/23/2410/2310/22/24 History capsule,extended release prednisone 20 mg tablet 10 mg PO DAILY 10/23/2410/1410/22/24 18:00 History Allergies Allergy/AdvReac Type Severity Reaction Status Date / Time No Known Allergies Allergy Verified 08/01/22 10:10 PFSH Acute 2 PFSH: Medical History (Updated 10/23/24 @ 16:57 by Andrew Ovalles MD) 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 Surgical History History of mandibular surgery (10/13/21) Left composite hemimandibulectomy with infratemporal fossa resection, left selective neck dissection, and left fibular free flap reconstruction Social History (Updated 10/23/24 @ 17:44 by Andrew Ovalles MD) Smoking and tobacco/nicotine status: never used tobacco/nicotine Alcohol intake: never Substance/Drug Use: never Additional social history: CODE STATUS was discussed with patient with her daughter Dorie Kilpatrick MD present at bedside and patient wants DNR status on October 23, 2024 with Andrew Ovalles MD Adopted: Yes Lives independently: Yes Household members: spouse Marital status: Number of children: 3 Vitals/I&O/Wt Last Vital Signs Temp 98.4 F 10/23/24 11:20 Pulse 100 10/23/24 14:53 Resp 16 10/23/24 14:53 BP 131/92 10/23/24 16:04 Pulse Ox 93 10/23/24 16:04 O2 Del Method Room Air 10/23/24 16:04 Weight last 48 hrs Weight 32.659 kg Weight 33 kg Physical Exam 2 Narrative: General well-developed cachectic female in no acute cardiopulmonary distress Neck she is full on the left side but she has postsurgical changes of mandible more rounded from fibula transplant. I do not identified definite adenopathy. Oral pharynx patient is only able to open her mouth about an inch. I do not see obvious thrush CV regular rate and rhythm Lungs crackles heard in the left upper lung field and right middle lung field no wheezes air movement is moderately good this does not result in coughing or hemoptysis Abdomen positive bowel tones soft nontender Calves no tenderness cords asymmetry Lymph nodes I am not identifying lymphadenopathy in the axilla neck or groin Skin is warm and dry Musculoskeletal patient looks pretty good but is significantly underweight at a BMI of 13.2 with decreased muscle mass Data 10/23/24 12:02 10/23/24 12:02 Micro: Microbiology 10/23/24 15:15 Blood Culture - Preliminary Blood SPECIMEN COLLECTED 10/23/24 15:13 Blood Culture - Preliminary Blood SPECIMEN COLLECTED A&P Assessment and plan 1. Squamous cell carcinoma of retromolar trigone: Suspected recurrence to the lung. Cannot exclude malignancy eroding into capillaries. Will anticoagulate carefully in case there is unexpected bleeding increase. Patient states she does not want a bronchoscopy primarily here for her comfort. 2. Pulmonary embolism: Due to risk of bleeding will anticoagulate with heparin as discussed with residential property manager Carmelita Bowden MD Interventional Service Associate. He would like us to use heparin for the first 24 hours in case we have unwanted bleeding 3. 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 If hypotensive will give stress dose steroids. Regular diet mechanical soft if desired add Ensure 1 can 3 times daily PDMP PDMP Reviewed: Not Reviewed Attestations 2 Medical Necessity Statement*: Patient admitted to hospital with hemoptysis and will require at anticoagulation carefully monitored for pulmonary embolism expected to require greater than 2 midnights in hospital Coding Level of Care Code 08133 Diagnoses Squamous cell carcinoma of retromolar trigone C06.2 Pulmonary embolism I26.99 Pneumonia J18.9 Cancer cachexia R64 Time Spent (min) 75
[2024-10-23] MEDS: pantoprazole 40 mg SDV IVP (17:40)
--- NOTE | 2024-10-23 17:41 | P.CONIM_ITS ---
Providers/Reason For Consult 2 Consulting Physician/Specialty*: Interventional Pulmonary Reason for Consult*: Hemoptysis Requesting Physician: Dr. 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 She initially presented in August 2021 with a lesion in the left retromolar trigone. Biopsy on 09/05/2021 confirmed moderately differentiated keratinizing SCC. On 10/13/2021, she underwent left composite hemimandibulectomy, infratemporal fossa resection, left neck dissection, and fibular flap reconstruction. Pathology showed mandibular invasion and involvement of 1 of 42 lymph nodes (2 cm), without extranodal extension. On 07/12/2022, follow-up at [facility] revealed a new left temporal mass. FNA confirmed recurrent SCC. PET/CT showed no distant metastases. She began systemic therapy on 07/26/2022 with carboplatin/paclitaxel and pembrolizumab (PD-L1+). 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 She received steroids afterward. The patient has experienced significant weight loss and is now cachectic. Today, she presented to the ED with hemoptysis. She reportedly had bright red blood with cough yesterday, which darkened and then resolved this morning. No active bleeding episodes since. CTA chest revealed new right upper and lower lobe consolidations concerning for metastases vs. other etiologies. It also showed segmental PE in the right lung and lingula. She is currently on room air, saturating in the low 90s, and appears comfortable but reports dyspnea with minimal exertion. No active cought and no fever Review of Systems 2 General: Reports: 10 or more systems reviewed and unremarkable except in HPI and below Const: Reports: change in weight and malaise Resp: Reports: hemoptysis Medications/Allergies Home Medications ?Medication ?Instructions ?Recorded ?Confirmed ?Last Taken ?Type esomeprazole magnesium 40 mg 40 mg PO DAILY 10/23/24 0 10/23/24 10/23/24 History capsule,delayed release hydrocortisone 10 mg tablet 15 mg PO BID 10/23/2410/1410/23/24 History levothyroxine 50 mcg tablet 50 mcg PO DAILY 10/23/24 0 10/23/24 10/23/24 History potassium chloride 10 mEq 20 meq PO BID 10/23/2410/2310/22/24 History capsule,extended release prednisone 20 mg tablet 10 mg PO DAILY 10/23/2410/1410/22/24 18:00 History Allergies Allergy/AdvReac Type Severity Reaction Status Date / Time No Known Allergies Allergy Verified 08/01/22 10:10 Current Medications Generic Name Dose Route Start Last Admin Trade Name Freq PRN Reason Stop Dose Admin Docusate Sodium 100 mg 10/23/24 18:00 10/23/24 17:35 Docusate Sodium 100 Mg Capsule PO Not Given BID CHELSEY PFSH Acute 2 PFSH: Medical History (Updated 10/23/24 @ 18:10 by Carmelita Bowden MD) 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 Surgical History History of mandibular surgery (10/13/21) Left composite hemimandibulectomy with infratemporal fossa resection, left selective neck dissection, and left fibular free flap reconstruction Social History (Updated 10/23/24 @ 17:44 by Andrew Ovalles MD) Smoking and tobacco/nicotine status: never used tobacco/nicotine Alcohol intake: never Substance/Drug Use: never Additional social history: CODE STATUS was discussed with patient with her daughter Dorie Kilpatrick MD present at bedside and patient wants DNR status on October 23, 2024 with Andrew Ovalles MD Adopted: Yes Lives independently: Yes Household members: spouse Marital status: Number of children: 3 Vitals/I&O/Wt Last Vital Signs Temp 98.4 F 10/23/24 11:20 Pulse 100 10/23/24 17:30 Resp 36 H 10/23/24 17:30 BP 140/100 10/23/24 17:30 Pulse Ox 96 10/23/24 17:30 O2 Del Method Nasal Cannula 10/23/24 16:34 10/23/24 10/23/24 10/23/24 06:59 14:59 22:59 Intake Total 50 / 50 Balance 50 / 50 Weight last 48 hrs Weight 72 lb Weight 72 lb 12.041 oz Physical Exam 2 Narrative: General: Elderly female, alert and oriented ?3. Appears chronically ill and visibly cachectic with significant extremity muscle wasting. No acute distress. Vital Signs: Stable. Afebrile. BP normal. HR regular. RR within normal limits. SpO in low 90s on room air. Head: Normocephalic, atraumatic. No scalp lesions or tenderness. Eyes: Pupils equal, round, reactive to light and accommodation. Extraocular movements intact. No conjunctival pallor or scleral icterus. Ears/Nose/Throat: Nasal mucosa moist, no discharge. Oral cavity: healing post-op changes in left retromolar area, no active bleeding or lesions noted. Neck: Supple, no lymphadenopathy, masses, or jugular venous distention. Surgical scars well-healed. Lungs: Good air entry bilaterally. No wheezing or rales. Mild tachypnea but no accessory muscle use. Cardiovascular: Regular rate and rhythm. Normal S1/S2. No murmurs, rubs, or gallops. Peripheral pulses intact. Abdomen: Soft, non-tender, non-distended. Bowel sounds present. No hepatosplenomegaly or masses. Extremities: No edema. Muscle wasting noted in upper and lower limbs bilaterally. No clubbing or cyanosis. Skin: Dry, pale. No rashes, ulcers, or signs of active bleeding. Neurological: Alert and oriented. No focal deficits. Normal strength (noting baseline weakness due to cachexia). Psychiatric: Appropriate affect. Cooperative. No signs of acute distress or confusion. Data 10/23/24 12:02 10/23/24 12:02 Micro: Microbiology 10/23/24 15:15 Blood Culture - Preliminary Blood SPECIMEN COLLECTED 10/23/24 15:13 Blood Culture - Preliminary Blood SPECIMEN COLLECTED CT Chest: Radiologist's impression: 1. Pulmonary emboli in within the peripheral branches of the RIGHT middle, lower and upper lobes and the lingular segment of the LEFT upper lobe. This is a new finding. 2. Focal spiculated masslike areas of consolidation in the RIGHT lung as noted above. These are new since the prior study. These may represent areas of focal pneumonia, malignant or metastatic disease or septic emboli might also have this appearance. A&P Assessment and plan 1. Pneumonia: 2. Pulmonary embolism: 3. Pulmonary nodules: 4. Hemoptysis: 5. Cancer cachexia: 6. Squamous cell carcinoma of retromolar trigone: 7. Heart failure: Plan: 79F with a history of stage NATI ([id number]) squamous cell carcinoma (SCC) of the left retromolar trigone, diagnosed in 08/2021, s/p left hemimandibulectomy, neck dissection, and fibular flap reconstruction. In 06/2022, she developed a local recurrence involving the left temporalis muscle and began treatment with carboplatin/paclitaxel and pembrolizumab (PD-L1+). Immunotherapy was discontinued in 07/2024 due to suspected pneumonitis and GI side effects. She is now significantly cachectic with substantial weight loss and presented with mild, low-volume hemoptysis. CTA chest revealed bilateral segmental/subsegmental pulmonary emboli and new right lung nodules. Echocardiogram showed preserved RV function without strain; LVEF was 31% without signs of volume overload. Hemoptysis etiology remains unclear?possible contributors include PE, metastatic disease, or septic emboli vs others. An extensive discussion was held with the patient and her daughter (an internal medicine physician). The patient strongly prefers conservative management, declines invasive diagnostics, and does not wish to pursue evaluation for possible cancer recurrence or undergo procedures at this time. Recommendations (discussed with Dr. Ovalles, [facility]): * Continue broad-spectrum antibiotics as initiated by the hospital medicine team, with plan to de-escalate based on culture results and clinical response. * Bilateral LE venous duplex and infectious workup including sputum gram stain/culture, blood cultures, fungal blood panel, and urine antigens for Legionella and Streptococcus. * Start low-dose heparin with bolus; closely monitor for worsening hemoptysis. If stable after 24?48 hours, consider transition to long-term anticoagulation. * IVC filter was discussed as possible intervention if she develops significant hemoptysis with heparin but declined by the patient and daughter; they prefer continued conservative chemical anticoagulation as long as clinically appropriate. * Avoid IV fluids; initiate diuresis given low EF and risk of fluid overload. * Patient and daughter reaffirmed DNR/DNI status and a clear preference to avoid aggressive or life-prolonging interventions. * Recommend palliative care consult for further [id number] discussion and e valuation for outpatient home hospice, which appears appropriate. If the patient changes her mind regarding evaluation of the right lung nodules, bronchoscopy can be reconsidered at that time. Carmelita Bowden MD, FACP Interventional Pulmoanry PDMP PDMP Reviewed: Last Reviewed 10/23/24 18:20 by Carmelita Bowden MD Coding Level of Care Code 75109 Diagnoses Pneumonia J18.9 Laterality: right Lung location: unspecified part of lung Pulmonary embolism I26.99 Pulmonary nodules R91.8 Hemoptysis R04.2 Cancer cachexia R64 Squamous cell carcinoma of retromolar trigone C06.2 Heart failure I50.9
[2024-10-23] MEDS: heparin drip 25,000 UNIT/500 ML PREMIX 8 UNIT IV (17:42)
[2024-10-23] MEDS: D5-NS 0.45% + KCL 20 mEq 20 MEQ/1,000 ML BAG 100 MEQ IV (17:43)
--- NOTE | 2024-10-23 17:52 | PC.NURSE ---
dr younger here exam pt .. protonix 40 given per order and heparin gtt started at 12u/kg/hr or 8cc/hr
[2024-10-23] MEDS: methylPREDNISolone sod succ 40 mg/mL INJ 30 MG IVP (18:01)
[2024-10-23] MEDS: FUROsemide 10 mg/mL SDV 4mL 40 MG IVP (19:37)
[2024-10-24] VITALS (17 sets, daily range): BP systolic 88–139; BP diastolic 68–100; PULSE 76–96; RESP 21–37; TEMP 36.4–37.1; O2SAT 94–97
[2024-10-24] MEDS: piperacillin-tazobactam 3.375 GM in sodium chloride 0.9% (plus) 50 ML IV ×2 (00:05→07:53)
[2024-10-24 00:23] LABS: Partial Thromboplastin Time 34.4 SECONDS (23.9-36.7)
[2024-10-24 06:36] LABS: Hematocrit 43.8 % (36-47); Hemoglobin 14.40 g/dL (11.27-16.99); Mean Corpuscular HGB Conc 32.9 g/dL (30-55); Mean Corpuscular Hemoglobin 29.7 pg (27-33); Mean Corpuscular Volume 90.3 fl (85-98); Nucleated Red Blood Cells % 0 %; Platelet Count 348 10^3/cmm (157-399); Red Blood Count 4.85 10^6/uL (3.85-5.65); White Blood Count 11.94 10^3/uL (3.29-11.43)
[2024-10-24 06:51] LABS: Partial Thromboplastin Time 59.1 SECONDS (23.9-36.7)
[2024-10-24 06:55] LABS: Alanine Aminotransferase 19 U/L (0-33); Albumin Level 3.2 g/dL (3.5-5.2); Alkaline Phosphatase 95 U/L (35-105); Anion Gap 13.7 (5-19); Aspartate Amino Transferase 15 U/L (0-32); Blood Urea Nitrogen 22 mg/dL (8-23); Calcium 9.2 mg/dL (8.5-10.5); Carbon Dioxide 28 mmol/L (22-29); Chloride 101 mmol/L (98-107); Creatinine Clr Calc Pharmacy 30.5867; Globulin 3.1 g/dL (1.3-4.6); Glucose 96 mg/dL (65-115); Osmolality Calculated 291 mOsm/kg (285-295); Potassium 3.7 mmol/L (3.5-5.1); Sodium 139 mmol/L (136-145); Total Protein 6.3 g/dL (6.6-8.7)
--- NOTE | 2024-10-24 08:43 | P.DS_ITS ---
Discharge Providers Date of Admission: 10/23/24 15:32 Date of Discharge: October 24, 2024 Attending Provider at Admission: Andrew Ovalles MD Attending Provider at Discharge: Andrew Ovalles MD Consults: Carmelita Bowden MD Pulmonology Primary Care Provider: Sole Azar MD Diagnoses at Discharge Discharge Diagnosis 1. Pneumonia: Details from hospital stay: Patient with blood-tinged yellow phlegm. Will treat with 7 days of Levaquin 2. Pulmonary embolism: Details from hospital stay: Continue with anticoagulation utilizing apixaban 2.5 mg twice a day 3. Pulmonary nodules: Details from hospital stay: Suspected metastases from squamous cell cancer of the mandible 4. Hemoptysis: Details from hospital stay: Unclear if this is infection, PE or cancer erosion into capillaries as the cause. Bleeding has been minimal. Will continue with treatment with antibiotics and anticoagulation as above 5. Cancer cachexia: Details from hospital stay: Patient declines to eat much due to poor appetite. Continue with pur?ed diet and Ensure type supplements 6. Squamous cell carcinoma of retromolar trigone: Details from hospital stay: Original cancer treated in 2021 7. Heart failure: Details from hospital stay: Patient with new drop in EF. Lung crackles improved with 40 mg of furosemide overnight renal function is stable Will prescribe as needed furosemide for lung crackles hypoxemia and respiratory distress Spoke with Dr. Bowden who recommends patient take diuretics daily. I wrote for diuretics and potassium Reason for Visit Reason for Visit: coughing blood, upper abdominal pain Brief History: Shahnaz Nugent is a 79 year old female with history of hemoptysis starting l ast evening. It was bright red blood roughly 2 tablespoons at a time. She refused to come to the ER and 11 AM it was more dark red. She came in because she was uncomfortable and wanted some relief from the uncomfortable coughing. Hemoptysis has since slowed and she is no longer coughing at this time of interview. Patient's daughter is Vivian Kilpatrick MD and internal medicine Working locally at [facility] is very knowledgeable and involved in the patient's care and provides most of the history. Patient had squamous cell cancer of the mandible 2001 without risk factor of smoking or alcohol use of any significance in the preceding life. In September 2021 she had mandibulectomy at [facility] with the left fibular flap placed and did fairly well but could not open her mouth very far. Her weight at the time was 120 pounds. She then performed radiation therapy until December 2021. She was not on chemo at that time. In July 2022 she had a 3 cm recurrence in her left temporalis muscle not resected but was treated at [facility] in [facility] with 3 cycles of chemotherapy including Taxol carboplatin and Docetaxel. Docetaxel made her sick. Also Keytruda made her sick which is a biologic and her last dose was to finish in July 2024 but she developed shortness of breath on her next to the last dose and so was stopped. She developed adrenal hyponatremia and hypothyroidism and weight about 90 pounds at that time. Since then she is dropped to 72 pounds. See above for hemoptysis. She is also had loss of appetite with the Keytruda with the significant weight loss. She has had epigastric pain. Notably she walked a half marathon just 1.5 years ago. PET scan in April [address] scan just last month was negative for identifiable masses. Hospital Course Hospital Course 79-year-old female admitted to the ICU for close monitoring of hemoptysis. She has multiple lung nodules suspected to be metastasis from squamous cell cancer of the left mandible originating in 2021. Patient was treated with antibiotics and diuresed due to EF 30% increase in size of the ventricles from previous CT scan and signs of lung edema on CT scan. She voided 1200 cc. Patient has been for the last few months but subjectively breathing s he says perhaps slightly improved. Cough production this morning yellow with blood-tinged thick sputum Patient is adamant that she wants to go home as quickly as possible and is supported in this decision by her Dylan and daughter MD Dr. Finesse Villasenor has arranged for home hospice and pastoral care. Physical Exam Narrative: General well-developed cachectic female in no acute cardiopulmonary distress Neck she is full on the left side but she has postsurgical changes of mandible more rounded from fibula transplant. I do not identified definite adenopathy. CV regular rate and rhythm Lungs few scattered rhonchi right midlung but fine crackles have resolved Abdomen positive bowel tones soft nontender Calves no tenderness cords asymmetry Skin is warm and dry Musculoskeletal patient looks pretty good but is significantly underweight at a BMI of 13.2 with decreased muscle mass Discharge Data Studies Completed and Pending Completed Studies During Hospitalization Category Date Time Status CTA chest CT abdomen pelvis [CT Angio Chest + Abdomen Cat Scan 10/23/24 11:29 Completed Pelvis w/ contrast; 98413 + [id number]] Stat XR chest 1V portable 10019 Stat Exams 10/23/24 11:20 Completed CV. echo limited 23260 Stat Ultrasound 10/23/24 14:53 Completed Pending at discharge Category Date Time Status Blood Culture Stat Lab 10/23/24 15:15 Results Fungitell Glucan Assay (Blood) Routine Lab 10/23/24 17:28 Received PTT [Partial Thromboplastin Time] Timed Lab 10/24/24 13:00 Ordered Platelet Count Q2D Lab 10/25/24 04:00 Ordered Platelet Count Q2D Lab 10/27/24 04:00 Ordered Radiology Impressions Chest X-Ray 10/23/24 11:20 IMPRESSION: 1. Pulmonary hyperinflation. 2. No acute infiltrates. 3. Soft tissue nodules identified in the upper and lower aspects of the RIGHT lung. Neoplasm or metastatic disease not excluded. Chest/Abdomen/Pelvis CT 10/23/24 11:29 IMPRESSION: 1. Pulmonary emboli in within the peripheral branches of the RIGHT middle, lower and upper lobes and the lingular segment of the LEFT upper lobe. This is a new finding. 2. Focal spiculated masslike areas of consolidation in the RIGHT lung as noted above. These are new since the prior study. These may represent areas of focal pneumonia, malignant or metastatic disease or septic emboli might also have this appearance. CT scan of the abdomen and pelvis with contrast. Small hiatal hernia. The liver, spleen and pancreas are unremarkable. The abdominal aorta is normal in caliber. The IVC is patent. Unremarkable kidneys. Normal adrenal glands. Normal gallbladder. Small bowel loops are normal in caliber. Constipation. No sign of acute appendix. Prominent rectal fecal impaction. Intact urinary bladder. No mass or adenopathy in the pelvis. No destructive bone lesions. No abdominal wall defects. Atrophic uterus. Osteitis of the pubic symphysis. IMPRESSION: 1. No mass, lymphadenopathy or acute finding in the abdomen or pelvis. 2. Constipation. Laboratory Results WBC 11.94 10^3/uL (3.29-11.43) H 10/24/24 06:29 RBC 4.85 10^6/uL (3.85-5.65) 10/24/24 06: Hgb 14.40 g/dL (11.27-16.99) 10/24/24 06: Hct 43.8 % (36-47) 10/24/24 06: MCV 90.3 fl (85-98) 10/24/24 06: MCH 29.7 pg (27-33) 10/24/24 06: MCHC 32.9 g/dL (30-55) 10/24/24 06: RDW 16.4 % (12.1-15.1) H 10/24/24 06:29 Plt Count 348 10^3/cmm (157-399) 10/24/24 06: MPV 8.1 fL (7.4-10.4) 10/24/24 06: Neut % (Auto) 86.4 % 10/24/24 06: Lymph % (Auto) 7.6 % 10/24/24 06: [place] % (Auto) 4.7 % 10/24/24 06: Eos % (Auto) 0.0 % 10/24/24 06: Baso % (Auto) 0.2 % 10/24/24 06: Neut # (Auto) 10.32 10^3/uL (1.8-7.7) H 10/24/24 06: Lymph # (Auto) 0.9 10^3/uL (0.8-4.8) 10/24/24 06: [place] # (Auto) 0.6 10^3/uL (0.2-0.9) 10/24/24 06: Eos # (Auto) 0.0 10^3/uL (0.0-0.8) 10/24/24 06: Baso # (Auto) 0.0 10^3/uL (0.0-0.1) 10/24/24 06: Nucleated RBC % (auto) 0 % 10/24/24 06: Nucleated RBCs # 0.0 /100WBC 10/24/24 06: APTT 59.1 SECONDS (23.9-36.7) H D 10/24/24 06:29 Sodium 139 mmol/L (136-145) 10/24/24 06: Potassium 3.7 mmol/L (3.5-5.1) 10/24/24 06:29 Chloride 101 mmol/L (98-107) 10/24/24 06: Carbon Dioxide 28 mmol/L (22-29) 10/24/24 06:29 Anion Gap 13.7 (5-19) 10/24/24 06:29 BUN 22 mg/dL (8-23) 10/24/24 06:29 Creatinine 0.4 mg/dL (0.5-0.9) L 10/24/24 06:29 GFR Calculation Not Reportable 10/24/24 06: Glucose 96 mg/dL (65-115) 10/24/24 06:29 Calculated Osmolality 291 mOsm/kg (285-295) 10/24/24 06: Lactic Acid 1.0 mmol/L (0.5-2.2) 10/23/24 15:15 Calcium 9.2 mg/dL (8.5-10.5) 10/24/24 06:29 Total Bilirubin 0.6 mg/dL (0.15-1.2) 10/24/24 06:29 AST 15 U/L (0-32) 10/24/24 06:29 ALT 19 U/L (0-33) 10/24/24 06:29 Alkaline Phosphatase 95 U/L (35-105) 10/24/24 06:29 Total Protein 6.3 g/dL (6.6-8.7) L 10/24/24 06: Albumin 3.2 g/dL (3.5-5.2) L 10/24/24 06:29 Globulin 3.1 g/dL (1.3-4.6) 10/24/24 06:29 Urine Color Yellow (Yellow) 10/23/24 12:21 Urine Appearance Clear (CLEAR) 10/23/24 12:21 Urine pH 5.5 (5-7) 10/23/24 12:21 Ur Specific Wyatt 1.028 (1.005-1.030) 10/23/24 12:21 Urine Protein Trace (Negative) A 10/23/24 12:21 Urine Glucose (UA) Negative (Normal) 10/23/24 12:21 Urine Ketones Negative (Negative) 10/23/24 12:21 Urine Blood Negative (Negative) 10/23/24 12:21 Urine Nitrate Negative (Negative) 10/23/24 12:21 Urine Bilirubin Negative (Negative) 10/23/24 12:21 Urine Urobilinogen 1.0 mg/dL (Negative) 10/23/24 12:21 Ur Leukocyte Esterase Negative (Negative) 10/23/24 12:21 Urine RBC 3-5 /hpf (0-2) 10/23/24 12:21 Urine WBC 0-5 /hpf (0-5) 10/23/24 12:21 Ur Squamous Epith Cells 0-5 /hpf (0-5) 10/23/24 12:21 Amorphous Sediment Not Reportable 10/23/24 12:21 Urine Bacteria None seen /hpf (NONE) 10/23/24 12:21 Hyaline Casts 1.21 /lpf 10/23/24 12:21 Blood Type A Positive 10/23/24 12:02 Rho(D) Type Rh positive 10/23/24 12:02 Antibody Screen Negative 10/23/24 12:[address] Chest: Radiologist's impression: 1. Pulmonary emboli in within the peripheral branches of the RIGHT middle, lower and upper lobes and the lingular segment of the LEFT upper lobe. This is a new finding. 2. Focal spiculated masslike areas of consolidation in the RIGHT lung as noted above. These are new since the prior study. These may represent areas of focal pneumonia, malignant or metastatic disease or septic emboli might also have this appearance. CT scan of the abdomen and pelvis with contrast. Small hiatal hernia. The liver, spleen and pancreas are unremarkable. The abdominal aorta is normal in caliber. The IVC is patent. Unremarkable kidneys. Normal adrenal glands. Normal gallbladder. Small bowel loops are normal in caliber. Constipation. No sign of acute appendix. Prominent rectal fecal impaction. Intact urinary bladder. No mass or adenopathy in the pelvis. No destructive bone lesions. No abdominal wall defects. Atrophic uterus. Osteitis of the pubic symphysis. IMPRESSION: 1. No mass, lymphadenopathy or acute finding in the abdomen or pelvis. 2. Constipation. Vitals Last Vital Signs Temp 98.7 F 10/24/24 08:00 Pulse 88 10/24/24 08:00 Resp 35 H 10/24/24 08:00 BP 116/86 10/24/24 08:00 Pulse Ox 97 10/24/24 08:00 O2 Del Method Nasal Cannula 10/24/24 08:00 O2 Flow Rate 2 10/24/24 08:00 Discharge Plan Discharge Patient Disposition: Home Condition: Stable Prescriptions: New magnesium hydroxide [Milk of Magnesia] 400 mg/5 mL Suspension 30 ml PO DAILY PRN (Reason: Constipation (see protocol)) Qty: 355 0RF docusate sodium 100 mg Capsule 100 mg PO BID Qty: 60 0RF levofloxacin 250 mg tablet 250 mg PO DAILY Qty: 7 0RF apixaban 2.5 mg tablet 2.5 mg PO BID Qty: 60 0RF furosemide [Lasix] 40 mg tablet 40 mg PO DAILY PRN (Reason: Respiratory distress, lung crackles or leg edema) Qty: 10 0RF potassium chloride 10 mEq capsule, extended release 20 meq PO DAILY Qty: 20 0RF Rx Instructions: take when taking furosemide Continued potassium chloride 10 mEq capsule, extended release 20 meq PO BID prednisone 20 mg tablet 10 mg PO DAILY levothyroxine 50 mcg tablet 50 mcg PO DAILY esomeprazole magnesium 40 mg capsule,delayed release(DR/EC) 40 mg PO DAILY hydrocortisone 10 mg tablet 15 mg PO BID [employer] OK for DC: Pulmonary Discharge Order = DC NOW: Discharge Order (Routine); Ordered 10/24/24 Ordered By: Andrew Ovalles Referrals: Sole Azar MD [Primary Care Provider, Internal Medicine] Discharge Diet: Soft Mechanical Discharge Activity: Resume usual activity Patient Instructions: Opioid Safety, Patient Portal & Desiree Instructions Activity Restrictions/Additional Instructions: Take apixaban twice a day as long as hemoptysis is mild Take Levaquin 1 daily for 7 days Oxygen 2 L/min for comfort Use incentive spirometer as tolerated to keep lungs open Enroll in hospice as arranged by Dr. Kilpatrick Discharge Attestations Time Spent in Discharge Care*: greater than 30 min Time Spent in Smoking Cessation: Not applicable Quality Metrics Clinical Quality Measures [ No reported AMI, CVA or VTE this stay] Coding Level of Care Code 98866 Diagnoses Pneumonia J18.9 Laterality: right Lung location: unspecified part of lung Pulmonary embolism I26.90 Acute cor pulmonale presence: without acute cor pulmonale Chronicity: acute Pulmonary embolism type: septic Pulmonary nodules R91.8 Hemoptysis R04.2 Cancer cachexia R64 Squamous cell carcinoma of retromolar trigone C06.2 Heart failure I50.9 Time Spent (min) 50
[2024-10-24] MEDS: methylPREDNISolone sod succ 40 mg/mL INJ 30 MG IVP (09:00)
--- NOTE | 2024-10-24 09:31 | PC.SOCIAL ---
IMM Update pg 2 of IMM Updated and reviewed w/ patient. Copy provided. Copy dated, initialed and placed in chart.
--- NOTE | 2024-10-24 11:37 | PC.NURSE ---
Discharged home on hospice with Daughter, Dorie.
[2024-10-29 00:04] LABS: Fungitell 1-3-B Glucan Assay >500 pg/mL (<60); Interpretation Positive (Negative)
== END 2024-10-24 11:37 | disposition hospice, home (50) | DRG 175 ==
LOC: ER 13:04 → ICU 15:32
PROVIDERS: Student in an Organized Health Care Education/Training Program; Admitting Provider Internal Medicine; Emergency Provider Family Medicine; PCP Internal Medicine; Visit Provider Internal Medicine
DX: I26.99 Other pulmonary embolism without acute cor pulmonale (principal); J18.9 Pneumonia, unspecified organism; C41.1 Malignant neoplasm of mandible; Z68.1 Body mass index [BMI] 19.9 or less, adult; I50.22 Chronic systolic (congestive) heart failure; R91.8 Other nonspecific abnormal finding of lung field; E88.A Wasting disease (syndrome) due to underlying condition; R09.02 Hypoxemia; E03.9 Hypothyroidism, unspecified; Z66 Do not resuscitate; Z92.3 Personal history of irradiation; Z92.21 Personal history of antineoplastic chemotherapy; Z92.25 Personal history of immunosuppression therapy
CPT/HCPCS: 36415; 71045; 71275; 74177; 80053; 81001; 83605; 85025; 85730; 86850; 86900; 87040; 87449; 93005; 93308; 94664; 96365; 96376; 99285; J1644; J1938; J2470; J2543; J2919; J9999